=== PATIENT | male | born 1955 | race Hispanic/Latino ===

== ENCOUNTER 2021-10-29 06:40 | Day surgery (SDC) | payer BC ==
--- NOTE | 2021-10-23 10:59 | RAD REPORT ---
EXAM DESCRIPTION: RAD - Chest Pa And Lat (2 Views) - 10/23/2021 10:52 am CLINICAL HISTORY: preop for surgery COMPARISON: Chest Pa And Lat (2 Views) dated 08/25/2016 FINDINGS: Lines: None. Lungs: No evidence of edema or pneumonia. Pleural: No significant pleural effusions or pneumothorax. Cardiac: The heart size is within normal limits. Bones: No acute fractures. Other: IMPRESSION: No acute cardiopulmonary disease.
--- NOTE | 2021-10-23 11:22 | EKG ---
Test Date: 2021-10-23 Test Time: 10:38:38 [employer] Licensee: JANELLE MEASUREMENT RESULTS: Intervals: Rate: 80 PA: 198 QRSD: 76 QT: 380 QTc: 438 [place]: P: 35 PA: 198 QRS: 12 T: 15 INTERPRETIVE STATEMENTS: Sinus rhythm with premature supraventricular complexes and premature ventricular complexes or fusion complexes Low voltage QRS Borderline ECG No previous ECG available for comparison Electronically Signed On 10-23-21 11:22:08 HAND UPPER AND BOTTOM LACER by Shaheed Dyer
[2021-10-23 11:40] LABS: Protime INR 0.91
[2021-10-23 11:45] LABS: BUN Blood Urea Nitrogen 13 mg/dL (7-18); Bicarbonate 28 mmol/L (21-32); Glucose Level 111 mg/dL (74-106); Potassium 4.2 mmol/L (3.5-5.1); Sodium Level 139 mmol/L (136-145)
[2021-10-25 07:24] LABS: Urine Appearance CLEAR (Clear); Urine Bilirubin NEGATIVE (Negative); Urine Blood NEGATIVE (Negative); Urine Color YELLOW (Yellow); Urine Glucose TRACE (Negative); Urine Protein NEGATIVE (Negative); Urine Specific Gravity 1.015 (1.005-1.030); Urine Urobilinogen 0.2 mg/dL (0.2-1.0)
[2021-10-25 07:27] LABS: Urine Microscopic Reflex NO UMIC
[2021-10-29] MEDS ORDERED: CEFAZOLIN/SWI 2gm 2 GM/20 ML SYR ONE (07:03)
[2021-10-29] MEDS ORDERED: NA CHLORIDE 0.9% 1,000 ML ONE (07:03)
[2021-10-29] MEDS ORDERED: propofoL 200 MG/20 ML VIAL IV ONE (07:12)
[2021-10-29] MEDS ORDERED: FENTANYL CITR 100 MCG/2 ML ONE (07:12)
[2021-10-29] MEDS ORDERED: MIDAZOLAM HCL 2 MG/2 ML INJ ONE (07:13)
[2021-10-29] MEDS ORDERED: LIDOCAINE 2% MPF 5 ML VIAL ONE (07:13)
[2021-10-29] MEDS ORDERED: ONDANSETRON 4 MG/2 ML VIAL ONE (07:15)
[2021-10-29] MEDS ORDERED: BUPIVACAINE 0.25% PF 10 ML VIAL ONE (07:16)
[2021-10-29] MEDS ORDERED: LIDOCAINE 1% 20 ML MDV ONE (07:16)
[2021-10-29] MEDS ORDERED: BACITRACIN OINTMENT 14 GM TUBE TOP ONE (07:19)
[2021-10-29] MEDS ORDERED: CELECOXIB 100 MG CAPSULE ONE (07:19)
[2021-10-29] MEDS ORDERED: ACETAMINOPHEN 500 MG TAB ONE (07:20)
[2021-10-29] MEDS ORDERED: HYDROCODONE/APAP 5/325 MG TAB PO PRN (07:43)
[2021-10-29] MEDS ORDERED: EPHEDRINE SULF 50 MG/ML VIAL ONE (08:39)
--- NOTE | 2021-10-29 09:50 | OP ---
Surgeon: MELISA GUILLEN Preoperative Diagnoses: 1.Recurrent balanoposthitis. 2.Penile lesion. Postoperative Diagnoses: 1.Recurrent balanoposthitis. 2.Penile lesion. Principle Procedures: 1.Revision circumcision. 2.Penile biopsy. 3.Penile block. Indication For Procedure: Mr. Clark presented to the Urology clinic suggesting he had been previously circumcised, yet had issues with recurrent inflammation of the preputial margin and glans penis. He is diabetic, and despite attempts at treatment with combination of steroid and ointments, some areas of apparent inflammation persisted. Also, because despite the fact that he had a prior circumcision , the skin still significantly overhung the bah of the glans and covered the glans nearly in its e ntirety as if he were uncircumcised, I recommended to decrease the inflammation that he consider revi alhaji circumcision. Eventually, when the inflammation failed to resolve despite aggressive treatments , he consented to proceed today. Procedure In Detail: The patient was consented in the preoperative holding area before being transfe rred to the operative suite where general anesthesia was induced. He was given Ancef IV antimicrobia l prophylaxis and pneumo boots were provided for DVT prophylaxis. He was placed supine on the operat sammy table, padded and secured to the table appropriately. His prepubic area was shaved before being prepped with Betadine and draped in standard fashion. The case was then begun using a 1:1 mixture of 1% lidocaine and 0.25% Marcaine plain to inject 30 cc in the infrapubic midline and in the region of the neurovascular bundles bilaterally to form a penile block. I then proceeded to identify the resi dual inflammatory patch of skin occupying about a 1 cm diameter area of the preputial margin on the l eft side of the penis dorsally. An elliptical biopsy was taken in the longitudinal direction, and th is was sent for frozen section pathologic analysis. The pathology returned simply inflammation with no evidence of malignancy; so I proceeded by delineating an additional portion of tissue to be resect ed from within the preputial margin and the shaft skin sufficient to decrease the excess skin overlap ping in the flaccid state and where the skin was still adequately without tension in direct state or stretched penile length state. The intervening skin was excised using a 15 blade, and then using thelma ctrocautery to remove it from its attaching dartos layers, the revision was performed. After reasses sing with the phallus in the stretched state, additional excision of tissue from the preputial margin was performed until the resultant reapproximation was excellent without excessive overhang of tissue . I then reapproximated the skin edges in 4 quadrant sutures using 3-0 chromic and sewed the interve saul tissue using a running horizontal mattress of 3-0 chromic dipped in bacitracin. Of note, the pr ior penile biopsy was closed in a running fashion using 4-0 chromic suture. In the end, the cosmetic result was excellent, and with the penis in the stretched state, the skin approximation was excellen t with no tension noted. As a result, the area was cleansed with saline before bacitracin was applie d around the circumcision line, and a Sherman and Coban were applied for gentle pressure dressing. The patient was then awakened from general anesthesia, transferred to a stretcher, and then transferred to the recovery room in good condition. Complications: None. Discharge Disposition: Follow up in approximately 3 weeks' time to discuss the results of the pathol ogy and review the cosmetic result. BRENDA/KELLY Voice ID: [id number] Report ID: [id number]
[2021-10-29] MEDS ORDERED: HYDROCODONE/APAP 5/325 MG TAB ONE (09:53)
[2021-10-29 10:05] VITALS: BP 130/74; TEMP 96.7; O2SAT 100
== END 2021-10-29 10:33 | disposition home or self-care (01) ==
LOC: OR 06:40
PROVIDERS: ATTEND Urology
PROC: 0VBSXZX Excision of Penis, External Approach, Diagnostic (ICD-10-PCS; 2021-10-29)
PROC: 0VTTXZZ Resection of Prepuce, External Approach (ICD-10-PCS; principal; 2021-10-29 07:30)
DX: N47.6 Balanoposthitis (principal); N47.7 Other inflammatory diseases of prepuce; N40.1 Benign prostatic hyperplasia with lower urinary tract symptoms; Z80.42 Family history of malignant neoplasm of prostate; Z20.822 Contact with and (suspected) exposure to COVID-19
CPT/HCPCS: 93005 ×2; 87088; 87086; 80048; 36415; 85610; 82947 ×2; 88331; 88304; 88305; 81003; 71046; 54163; 54100; U0002; J2704; J2250; J3010; J0690; J7030; J2405